=== PATIENT | female | born 1975 ===

== ENCOUNTER 2017-12-13 10:36 | Emergency (ER) | payer MEDICAID ==
[2017-12-13 10:46] VITALS: TEMP 97.9
[2017-12-13] MEDS ORDERED: Lidocaine 5% Oint(35 gm) TOP STA (11:22)
--- NOTE | 2017-12-13 11:45 | C.PDOC ---
History Of Present Illness 42 y/o female with PMH trigeminal neuralgia presents to the ED c/o left facial pain x 8 months. States pain is a constant 10/10, worse with facial movement with intermittent radiation into left side of neck. Pt was seen in [place] ED (here today with her discharge paperwork) on 12/02/17 for the same complaint and admitted overnight for pain control. Treated with multiple medications including toradol, decadron, magnesium, ketamine drip, imitrex, reglan, carbamazepine, gabapentin, lidocaine gel, none of which relieved her pain. Seen and evaluated in the hospital by neurologist, Dr. Sanchez. Pt discharged with prescription for gabapentin and lidocaine gel and referral to neurology outpatient, which pt has not complied with secondary to financial issues. Pt has not taken any medication at home for pain. She is requesting lidocaine gel. Denies fevers, chills, headache, vision changes, facial weakness, difficulty swallowing, changes in speech, changes in gait, incoordination, dizziness, numbness, paresthesias, weakness, SOB, chest pain, palpitations, syncope. Chief Complaint (Nursing): Pain, Chronic History Per: Patient History/Exam Limitations: no limitations Onset/Duration Of Symptoms: Days (8 months) Past Medical History Reviewed: Historical Data, Nursing Documentation, Vital Signs Vital Signs: Last Vital Signs Temp 97.9 F 12/13/17 10:44 Pulse 76 12/13/17 10:44 Resp 18 12/13/17 10:44 BP 142/87 12/13/17 10:44 Pulse Ox 97 12/13/17 10:44 - Medical History PMH: Asthma Family History: States: No Known Family Hx - Social History Hx Alcohol Use: No Hx Substance Use: No - Immunization History Hx Tetanus Toxoid Vaccination: Yes Hx Influenza Vaccination: Yes Hx Pneumococcal Vaccination: Yes Review Of Systems Except As Marked, All Systems Reviewed And Found Negative. Constitutional: Negative for: Fever, Chills Eyes: Negative for: Pain, Vision Change ENT: Positive for: Ear Pain (left external ear), Nose Pain (left side of nose). Negative for: Ear Discharge, Nose Discharge, Nose Congestion, Mouth Pain, Mouth Swelling, Throat Pain, Throat Swelling Cardiovascular: Negative for: Chest Pain, Palpitations, Light Headedness Respiratory: Negative for: Cough, Shortness of Breath, Wheezing Gastrointestinal: Positive for: Nausea. Negative for: Vomiting, Abdominal Pain, Diarrhea Genitourinary: Negative for: Dysuria, Frequency Musculoskeletal: Positive for: Neck Pain (left). Negative for: Shoulder Pain, Arm Pain, Back Pain, Hand Pain, Leg Pain, Foot Pain Skin: Negative for: Rash, Lesions Neurological: Negative for: Weakness, Numbness, Incoordination, Change in Speech, Confusion, Seizures, Altered Mental Status, Headache, Dizziness Physical Exam - Physical Exam Appears: Well, Non-toxic, No Acute Distress Skin: Normal Color, Warm, Dry Head: Atraumatic, Normacephalic, Tenderness (mild tenderness over V1 and V2 distribution, left side of face), No Swelling, No Abrasion, No Laceration Eye(s): bilateral: Normal Inspection, PERRL, EOMI Ear(s): Bilateral: Normal Nose: Normal, No Epistaxis, No Deformity, Tenderness (left side) Oral Mucosa: Moist Tongue: Normal Appearing Lips: Normal Appearing Teeth: Normal Dentition Gingiva: Normal Appearing Throat: Normal Neck: Normal, Normal ROM, No Decreased ROM, No Midline Cervical Tenderness, No Paracervical Tenderness, Supple Lymphatic: Normal Exam, No Adenopathy Cardiovascular: Rhythm Regular, No Murmur Respiratory: Normal Breath Sounds, No Decreased Breath Sounds, No Accessory Muscle Use, No Rales, No Rhonchi, No Stridor Gastrointestinal/Abdominal: Normal Exam, Bowel Sounds (normal), Soft, No Tenderness Rectal: Deferred Back: Normal Inspection, No Vertebral Tenderness, No Decreased ROM, No Muscle Spasm, No Paraspinal Tenderness Extremity: Normal ROM, No Tenderness, Capillary Refill (<2s), No Deformity, No Swelling Extremity: Bilateral: Atraumatic, No Pedal Edema, Normal Color And Temperature, Normal ROM Pulses: Left Carotid: Normal, Right Carotid: Normal, Left Radial: Normal, Left Femoral: Normal Neurological/Psych: Oriented x3, Normal Speech, Normal Cognition, Normal Cranial Nerves, No Cerebellar Signs, Normal Motor, Normal Sensation Gait: Steady ED Course And Treatment O2 Sat by Pulse Oximetry: 97 Medical Decision Making Medical Decision Making: Initial Plan: --Toradol --Lidocaine topical --Chart review --Call neuro merchandising execution associate Case discussed with Dr. Hinojosa, who recommends calling neuro on-call to discuss pt case. On re-eval, pt continues to complain of left facial pain. Now also c/o nausea. -will give Zofran for nausea Spoke with Dr. Perez from neurology. She recommends 300mg Lyrica today in ED, with 150mg Lyrica daily at bedtime for 7 days or until followup with her in the office. -will give 300mg Lyrica On re-eval pt reports slightly decreased pain and resolution of nausea. Discussed with the pt the importance of neurology followup and compliance with prescribed medications. Pt shows understanding and agrees with plan of care. Pt comfortable with discharge home. Pt stable for discharge home. Impression: Trigeminal Neuralgia Plan: Take ibuprofen every 6 hours with food as needed for pain Use lidoderm patches every 12h as needed for pain Take Lyrica every night for 7 days or until followup with neurology Followup with neurology within 2 days Followup with primary within 2 days Return to ER for new or worsening symptoms Disposition Discussed With .: Javon Perez Comment: Recommends one 300mg dose of lyrica in ED, with 7 day prescription for 150mg lyrica to be taken once daily at night with outpatient f/u in her office DEAND[facility]. Doctor Will See Patient In The: Office Counseled Patient/Family Regarding: Diagnosis, Need For Followup, Rx Given - Disposition Referrals: Javon Perez MD [Staff Provider] - Disposition: HOME/ ROUTINE Disposition Time: 14:00 Condition: STABLE Additional Instructions: Take ibuprofen every 6 hours with food as needed for pain Use lidoderm patches every 12h as needed for pain Take Lyrica every night for 7 days or until followup with neurology Followup with neurology within 2 days Followup with primary within 2 days Return to ER for new or worsening symptoms Prescriptions: Ibuprofen [Motrin Tab] 800 mg PO Q6H PRN #30 tab PRN Reason: Pain, Moderate (4-7) Lidocaine 5% [Lidoderm] 1 patch TD Q12H #10 patch Pregabalin [Lyrica] 150 mg PO DAILY #7 capsule Instructions: Trigeminal Neuralgia Forms: [facility] [employer] [facility] (Faroese) - Clinical Impression Clinical Impression: Trigeminal neuralgia
[2017-12-13 14:24] VITALS: BP 119/83; PULSE 72; RESP 16
[2017-12-14 21:16] VITALS: O2SAT 97
== END 2017-12-13 14:26 | disposition home or self-care (01) ==
LOC: C.ER 10:36
DX: G50.0 Trigeminal neuralgia (principal)
CPT/HCPCS: 96372; 99283; J1885

== ENCOUNTER 2017-12-19 10:01 | Emergency (ER) | payer MEDICAID ==
[2017-12-19 10:10] VITALS: RESP 20
[2017-12-19] MEDS ORDERED: Dexamethasone 4 mg/1 ml IVP STA ×2 (10:28→10:33)
[2017-12-19] MEDS ORDERED: Sodium Chloride 0.9% 1,000 ML IV ONE (10:28)
--- NOTE | 2017-12-19 10:31 | C.PDOC ---
History Of Present Illness 42 year old female with history of trigeminal neuralgia for 1 year presents to ED complaining of worsening left sided face pain and headache. Patient states the pain is 10/10 and took gabapentin this morning. Patient reports feeling nauseous, and vomited today. Patient was recently admitted to [facility] two weeks ago and had an outpatient CT there. Denies fever, chills, chest pain, cough, shortness of breath, weakness, numbness. Time Seen by Provider: 12/19/17 10:27 Chief Complaint (Nursing): Headache History Per: Patient History/Exam Limitations: no limitations Onset/Duration Of Symptoms: Days Current Symptoms Are (Timing): Still Present Past Medical History Reviewed: Historical Data, Nursing Documentation, Vital Signs Vital Signs: Last Vital Signs Temp 98.6 F 12/19/17 10:09 Pulse 73 12/19/17 10:09 Resp 20 12/19/17 10:09 BP 135/70 12/19/17 10:09 Pulse Ox 99 12/19/17 10:09 - Medical History PMH: Asthma Surgical History: No Surg Hx Family History: States: No Known Family Hx - Social History Hx Alcohol Use: No Hx Substance Use: No - Immunization History Hx Tetanus Toxoid Vaccination: Yes Hx Influenza Vaccination: Yes Hx Pneumococcal Vaccination: Yes Review Of Systems Except As Marked, All Systems Reviewed And Found Negative. Constitutional: Negative for: Fever, Chills Cardiovascular: Negative for: Chest Pain Respiratory: Negative for: Cough, Shortness of Breath Gastrointestinal: Positive for: Nausea, Vomiting Musculoskeletal: Positive for: Other (Pain to left side of face.) Neurological: Positive for: Headache. Negative for: Weakness, Numbness Physical Exam - Physical Exam Appears: Non-toxic, No Acute Distress, Other (Obese) Skin: Warm, Dry Head: Atraumatic, Normacephalic Eye(s): bilateral: Normal Inspection Oral Mucosa: Moist Neck: Supple Chest: Symmetrical, No Deformity Cardiovascular: Rhythm Regular Respiratory: Normal Breath Sounds, No Rales, No Rhonchi, No Wheezing Gastrointestinal/Abdominal: Soft, No Tenderness Neurological/Psych: Oriented x3 ED Course And Treatment O2 Sat by Pulse Oximetry: 99 (RA) Pulse Ox Interpretation: Normal Reassessment Condition: Improved (on re-evaluation pain resolved, pt ambulates with steady gait and speaks in full sentences.) Medical Decision Making Medical Decision Making: Plan: * Benadryl * Decadron * Reglan * IV fluids * Tegretol * Toradol CT from [facility] 12/02/17 was reviewed and was found there were no acute intracranial abnormality. Disposition Counseled Patient/Family Regarding: Diagnosis, Need For Followup - Disposition Referrals: Otto Sargent MD [Staff Provider] - Roberto Napier MD [Staff Provider] - Toño Vega MD [Staff Provider] - Disposition: HOME/ ROUTINE Disposition Time: 12:14 Condition: STABLE Additional Instructions: FOLLOW UP WITH NEUROLOGIST ON THURSDAY FOR RE-EVALUATION. CONTINUE ALL YOUR MEDICATIONS. IF SYMPTOMS GET WORSE OR ANY NEW CONCERNING SYMPTOMS DEVELOP RETURN TO ED. Instructions: Trigeminal Neuralgia Forms: [facility] ([place] Citizen), General Discharge Instructions - Clinical Impression Clinical Impression: Trigeminal neuralgia - PA / MANAGER CRITICAL CARE UNIT / Resident Statement MD/DO has reviewed & agrees with the documentation as recorded. - Scribe Statement The provider has reviewed the documentation as recorded by the Virgieibe Malachi Hearded All medical record entries made by the Chantel were at my direction and personally dictated by me. I have reviewed the chart and agree that the record accurately reflects my personal performance of the history, physical exam, medical decision making, and the department course for this patient. I have also personally directed, reviewed, and agree with the discharge instructions and disposition.
[2017-12-19] MEDS ORDERED: DiphenhydrAMINE 50 mg/ml Inj IVP STA (10:33)
[2017-12-19] MEDS ORDERED: DiphenhydrAMINE 50 mg/ml Inj ONE (10:44)
[2017-12-19] MEDS ORDERED: Dexamethasone 10 MG in Sodium Chloride 0.9% 50 ML IVPB ONE (11:00)
[2017-12-19 11:43] VITALS: BP 113/74; PULSE 61; TEMP 97.4
[2017-12-19 12:13] VITALS: O2SAT 99
== END 2017-12-19 12:30 | disposition home or self-care (01) ==
LOC: C.ER 10:01
DX: G50.0 Trigeminal neuralgia (principal)
CPT/HCPCS: 96365; 96375; 99285; J1100; J1200; J1885; J2765; J7030

== ENCOUNTER 2018-04-01 01:38 | Emergency (ER) | payer MEDICAID ==
[2018-04-01] MEDS ORDERED: Hydrocodone/Acetaminophen 5 mg /300 mg Tab PO STA (02:14)
[2018-04-01] MEDS ORDERED: Hydrocodone/Acetaminophen 5 mg /300 mg Tab PO ONE (02:30)
--- NOTE | 2018-04-01 03:06 | C.PDOC ---
History Of Present Illness 42 year old female with chronic trigeminal neuralgia on tramadol and gabapentin presents today with increased trigeminal neuralgia pain. Patient last took meds at 2200 but could not sleep due to the shooting pain. She reports the pain feel similar to previous but more severe. Denies fever, trauma, or weakness. Patient sees a local neurologist and as an appointment to see him in one month. Chief Complaint (Nursing): Pain, Chronic History Per: Patient History/Exam Limitations: no limitations Onset/Duration Of Symptoms: Hrs Current Symptoms Are (Timing): Still Present Recent travel outside of the [place]: No Past Medical History Reviewed: Historical Data, Nursing Documentation, Vital Signs Vital Signs: Last Vital Signs Temp 97.8 F 04/01/18 01:51 Pulse 61 04/01/18 01:51 Resp 20 04/01/18 01:51 BP 139/91 H 04/01/18 01:51 Pulse Ox 100 04/01/18 01:51 - Medical History PMH: Asthma Family History: States: Unknown Family Hx - Social History Hx Alcohol Use: No Hx Substance Use: No - Immunization History Hx Tetanus Toxoid Vaccination: Yes Hx Influenza Vaccination: Yes Hx Pneumococcal Vaccination: Yes Review Of Systems Constitutional: Negative for: Fever, Chills Eyes: Negative for: Pain, Redness ENT: Negative for: Mouth Swelling Cardiovascular: Negative for: Chest Pain, Palpitations Respiratory: Negative for: Cough, Shortness of Breath Gastrointestinal: Negative for: Nausea, Vomiting, Diarrhea Genitourinary: Negative for: Dysuria, Hematuria Musculoskeletal: Negative for: Back Pain Skin: Negative for: Rash Neurological: Negative for: Weakness, Numbness, Dizziness Physical Exam - Physical Exam Appears: Non-toxic, Other (In moderate distress, speaking in complete sentences) Skin: Normal Color, Warm, No Rash Head: Atraumatic, Normacephalic, No Tenderness Eye(s): bilateral: Normal Inspection, PERRL, EOMI Oral Mucosa: Moist Neck: Normal ROM, No Midline Cervical Tenderness, No Paracervical Tenderness, Supple Chest: Symmetrical Respiratory: No Accessory Muscle Use, Other (Normal inspiratory effort) Gastrointestinal/Abdominal: Soft, No Distention Extremity: Normal ROM (x4) Neurological/Psych: Oriented x3, Normal Speech, Normal Cranial Nerves (Grossly intact), Normal Motor, Normal Sensation, Other (No facial droop) Gait: Steady ED Course And Treatment O2 Sat by Pulse Oximetry: 100 (Room air) Pulse Ox Interpretation: Normal Progress Note: patient reports resolution of headache after receiving IV medication. she feels ready to be discharged at this time. she reported feeling pain in her neck after receiving "one of the IV meds". on examination her neck suppled without reproducible pain or stiffness. Medical Decision Making Medical Decision Making: Patient to be given pain meds, instructed to make sooner appointment with neurologist. Disposition - Disposition Disposition: HOME/ ROUTINE Disposition Time: 05:48 Condition: IMPROVED Instructions: Trigeminal Neuralgia Forms: [facility] (Amharic), General Discharge Instructions - Clinical Impression Clinical Impression: Trigeminal neuralgia - PA / CORPORATION OFFICER / Resident Statement MD/DO has reviewed & agrees with the documentation as recorded. - Scribe Statement The provider has reviewed the documentation as recorded by the Scribcompa Ewing All medical record entries made by the Virgieibcompa were at my direction and personally dictated by me. I have reviewed the chart and agree that the record accurately reflects my personal performance of the history, physical exam, medical decision making, and the department course for this patient. I have also personally directed, reviewed, and agree with the discharge instructions and disposition.
[2018-04-01] MEDS ORDERED: Acetaminophen IV 1,000 MG in Premixed IV 1 EA IV ONE (03:50)
[2018-04-01] MEDS ORDERED: Sodium Chloride 0.9% 1,000 ML IV STA (03:51)
[2018-04-01] MEDS ORDERED: Sodium Chloride 0.9% 1,000 ML ONE (04:17)
[2018-04-01 05:54] VITALS: BP 126/82; PULSE 73; RESP 14; TEMP 98.3; O2SAT 97
== END 2018-04-01 06:01 | disposition home or self-care (01) ==
LOC: C.ER 01:38
DX: G50.0 Trigeminal neuralgia (principal)
CPT/HCPCS: 96361; 96372; 96374; 96375; 99284; J0131; J0780; J1100; J1885; J7040

== ENCOUNTER 2018-04-25 02:52 | Emergency (ER) | payer MEDICAID, OTHER ==
[2018-04-25 02:52] VITALS: BMI 34.0
[2018-04-25 03:30] VITALS: BP 110/71; PULSE 82; RESP 18; TEMP 98.3; O2SAT 98
--- NOTE | 2018-04-25 03:49 | C.PDOC ---
History Of Present Illness 42 year old female with PMHx of asthma and trigeminal neuralgia presents to the ED c/o exacerbation of left trigeminal neuralgia. Patient reports she ran out of her Tramadol 2 weeks ago. Patient states her neurologist rescheduled her appointment, pending evaluation on 05/12. Patient reports pain worsens by cold exposure. Patient states there is no improvement with neurontin. Patient also c/o oral irritation due to inhaled steroids. Patient denies headache, visual changes, fever, chills, rash, weakness, umbness. RAN OUT OF TRAMADOL 2 WKS AGO, CO EXAC L TRIGEMINAL NEURALGIA. PS NEUROLOGIST RESCHEDULED HER APPT, NOW PENDING EVAL 05/12. EXAC BY COLD EXPOSURE. NO IMPROVE W NEURONTIN past medical history of asthma and trigeminal neuralgia ALSO CO ORAL IRRITATION DUE TO INHALED STEROIDS. EXAM MILD DIST HEENT SCATTERED PUNCTATE BUCCAL LESIONS, NO JOSÉ; NO GROSS ASYM SKIN WNL Time Seen by Provider: 04/25/18 03:20 Chief Complaint (Nursing): Pain, Chronic History Per: Patient History/Exam Limitations: no limitations Onset/Duration Of Symptoms: Days Current Symptoms Are (Timing): Still Present Recent travel outside of the [place]: No Additional History Per: Patient Past Medical History Reviewed: Historical Data, Nursing Documentation, Vital Signs Vital Signs: Last Vital Signs Temp 98.3 F 04/25/18 03:29 Pulse 82 04/25/18 03:29 Resp 18 04/25/18 03:29 BP 110/71 04/25/18 03:29 Pulse Ox 98 04/25/18 03:29 - Medical History PMH: Asthma Denies: HIV, Chronic Kidney Disease Surgical History: No Surg Hx - [facility] (12/02/17) INTRODUCTION OF SERUM/TOX/VACCINE INTO MUSCLE, PERC APPROACH (12/02/17) Family History: States: Unknown Family Hx - Social History Hx Alcohol Use: No Hx Substance Use: No - Immunization History Hx Tetanus Toxoid Vaccination: Yes Hx Influenza Vaccination: No Hx Pneumococcal Vaccination: No Review Of Systems Constitutional: Negative for: Fever, Chills ENT: Positive for: Ear Pain, Mouth Pain. Negative for: Nose Discharge, Nose Congestion Respiratory: Negative for: Cough, Shortness of Breath Gastrointestinal: Negative for: Nausea, Vomiting, Abdominal Pain Skin: Negative for: Rash Neurological: Negative for: Weakness, Numbness Physical Exam - Physical Exam Appears: Non-toxic, In Acute Distress Skin: Normal Color, Warm, Dry Head: Atraumatic, Normacephalic Eye(s): bilateral: Normal Inspection Oral Mucosa: Moist, Other (scattered punctate buccal lesions, no josé) Tongue: No Bleeding Throat: Normal, No Erythema, No Exudate Neck: Normal ROM, Supple Chest: Symmetrical Cardiovascular: Rhythm Regular Respiratory: Normal Breath Sounds, No Rales, No Rhonchi, No Wheezing Extremity: Normal ROM Neurological/Psych: Oriented x3, Normal Speech, Normal Cognition Gait: Steady ED Course And Treatment O2 Sat by Pulse Oximetry: 98 (On RA) Pulse Ox Interpretation: Normal Medical Decision Making Medical Decision Making: Plan: * Viscous lidocaine 15 ml PO * Tramadol 50 mg PO Disposition Counseled Patient/Family Regarding: Diagnosis, Need For Followup, Rx Given - Disposition Referrals: YOUR,PMD [Other] Disposition: HOME/ ROUTINE Disposition Time: 03:35 Condition: IMPROVED Prescriptions: Tramadol HCl [Ultram] 50 mg PO QID #20 tab Instructions: Chronic Pain (DC) Forms: [employer] (Welsh) - Clinical Impression Clinical Impression: Trigeminal neuralgia of left side of face, Chronic pain, Medicine refill - Scribe Statement The provider has reviewed the documentation as recorded by the Scribe Jasiel Min All medical record entries made by the Scribe were at my direction and personally dictated by me. I have reviewed the chart and agree that the record accurately reflects my personal performance of the history, physical exam, medical decision making, and the department course for this patient. I have also personally directed, reviewed, and agree with the discharge instructions and disposition.
== END 2018-04-25 03:59 | disposition home or self-care (01) ==
LOC: MERGE 02:52 → C.ER 02:52
DX: Z76.0 Encounter for issue of repeat prescription (principal); G89.29 Other chronic pain; G50.0 Trigeminal neuralgia